=== PATIENT | female | born 1980 | race Caucasian/White ===

== ENCOUNTER → 2016-11-17 | Outpatient (CLI) | payer OTHER ==
--- NOTE | 2016-11-17 14:17 | RAD ---
DATE: 11/17/2016 EXAM: DIGITAL DIAGNOSTIC BILATERAL HISTORY: Left breast pain COMPARISON: Baseline study This study was interpreted with the benefit of Computerized Aided Detection (CAD). FINDINGS: Patient complains of nipple pain without identification of a discrete lump. The breasts are extremely dense, limiting the sensitivity of mammography. No mass is identified. There are coarse benign type calcifications at the 12:00 location in the right breast and projected over the left axillary tail region on the oblique view. No suspicious microcalcifications are evident. IMPRESSION: 1. Extremely dense breasts. 2. No mammographic evidence of malignancy. 3. Clinical surveillance is suggested, and if a palpable area of concern develops, breast ultrasound may be considered for further evaluation. BI-RADS CATEGORY: 2 BENIGN FINDING(S) RECOMMENDED FOLLOW-UP: CLIN FOLLOW UP IMAGING CLINICALLY INDICATED PQRS compliance statement: Patient information was entered into a reminder system with a target due date for the next mammogram. Mammography is a sensitive method for finding small breast cancers, but it does not detect them all and is not a substitute for careful clinical examination. A negative mammogram does not negate a clinically suspicious finding and should not result in delay in biopsying a clinically suspicious abnormality. "Our facility is accredited by the [employer] Mammography Program."
== END | disposition home or self-care (01) ==
LOC: MAMMO 13:40
PROVIDERS: ATTEND Nurse Practitioner Family
DX: N64.4 Mastodynia (principal); R92.2 Inconclusive mammogram
CPT/HCPCS: G0204; 77066